=== PATIENT | female | born 1985 | race Two or more races ===

== ENCOUNTER 2018-09-11 09:47 | Emergency (ER) | payer OTHER ==
[~2018-09-11] VITALS: Ht 162.6 cm; Wt 121.2 kg
[2018-09-11] MEDS ORDERED: HYDR25TAB PO (09:57)
[2018-09-11] MEDS ORDERED: METO200T28 PO (09:57)
[2018-09-11] MEDS ORDERED: METO100T5 PO (09:57)
[2018-09-11] MEDS ORDERED: MAGN400T2 PO (09:58)
[2018-09-11] MEDS ORDERED: VITA100T98 PO (09:58)
[2018-09-11 10:48] LABS: HEMATOCRIT 38.3 % (36.0-47.0); HEMOGLOBIN 11.5 g/dl (12.0-15.5); MEAN CORPUSCULAR HEMOGLOBIN 21.5 pg (27.0-33.0); MEAN CORPUSCULAR VOLUME 71.5 fl (80.0-96.0); PLATELET COUNT, AUTOMATED 317 10^3/uL (150-450); RED BLOOD COUNT 5.36 10^6/uL (4.00-5.40); WHITE BLOOD COUNT 9.6 10^3/uL (4.0-10.0)
--- NOTE | 2018-09-11 11:55 | REP ---
Emergency first trimester obstetric sonography: History: Vaginal bleeding. Findings: Transabdominal and transvaginal scanning are performed. There is a gestational sac in the uterine endometrium. Mean sac size diameter is 9.7 mm. This corresponds with a gestational age estimate of 5 weeks 5 days. Questionable yolk sac is seen but no embryonic pole is visible. Limited visualization of the ovaries show no abnormality. There is no free fluid. Right ovary measures 2.2 x 1.9 x 1.9 cm. Left ovarian dimensions are 2.3 x 2.2 x 2.1 cm. Doppler flow is normal in both ovaries. Resistive indices are 0.30 on the right and 0.39 on the left. Uterine dimensions are 11.7 x 6.1 x 7.4 cm. Impression: Intrauterine gestational sac with a questionable yolk sac but no embryonic pole. Nonspecific findings. Consider followup. 5 week 5 day size by mean sac size diameter. Electronically Signed by Jerome Longoria MD 09/11/2018 02:48 P
[2018-09-11] MEDS ORDERED: MACR100C43 PO (12:06)
[2018-09-11 12:13] VITALS: BP 121/71
== END 2018-09-11 12:14 | disposition home or self-care (01) ==
LOC: M ED 09:47
DX: O36.80X0 Pregnancy with inconclusive fetal viability, not applicable or unspecified (principal); O20.0 Threatened abortion; O23.11 Infections of bladder in pregnancy, first trimester; O26.851 Spotting complicating pregnancy, first trimester; O16.1 Unspecified maternal hypertension, first trimester; Z3A.01 Less than 8 weeks gestation of pregnancy; Z87.891 Personal history of nicotine dependence; Z79.899 Other long term (current) drug therapy

== ENCOUNTER → 2018-09-13 | Outpatient (CLI) | payer OTHER ==
[~2018-09-13] MED LIST: HYDR25TAB PO; MACR100C43 PO; MAGN400T2 PO; METO100T5 PO; METO200T28 PO; VITA100T98 PO
== END ==
LOC: M LAB 11:08
PROVIDERS: ATTEND Emergency Medicine
DX: Z32.00 Encounter for pregnancy test, result unknown (principal)

== ENCOUNTER → 2018-09-18 | Outpatient (CLI) | payer OTHER ==
--- NOTE | 2018-09-18 17:34 | REP ---
FIRST TRIMESTER OB ULTRASOUND: 09/18/2018. Comparison: 09/11/2018. Clinical history: First trimester OB ultrasound 09/18/2018. Findings: Transabdominal imaging technique was utilized. The gestational sac well visualized on this exam. By LMP she would be 8 weeks 4 days. Today's study shows the uterus with a gestational sac in the fundus. Uterus anteverted. Within the gestational sac is a pole with a crown-rump length of 1.2 cm which corresponds to 7 weeks 2 days or an EDC of 05/05/2019. heart activity noted at 150 bpm. No subchorionic bleed is seen. The left ovary 2.8 x 2.5 x 2.4 cm. The right ovary 2.7 x 2.2 centimeters in greatest diameter and normal in appearance. No pelvic free fluid. Impression: 1. Single intrauterine gestation at 7 weeks 2 days by crown-rump length giving EDC 05/05/2019. Heart rate 150 and regular with no subchorionic bleed, adnexal mass or pelvic free fluid. Electronically Signed by Arthur Hastings MD 09/19/2018 11:28 A
== END ==
LOC: M RAD 14:30
PROVIDERS: ATTEND Obstetrics & Gynecology
DX: Z36.89 Encounter for other specified antenatal screening (principal); Z3A.01 Less than 8 weeks gestation of pregnancy

== ENCOUNTER 2018-10-24 15:45 | Emergency (ER) | payer OTHER ==
[~2018-10-24] VITALS: Ht 162.6 cm; Wt 125.6 kg
[2018-10-24 15:46] VITALS: BP 111/69
[2018-10-24] MEDS ORDERED: LABE100T36 PO (15:55)
[2018-10-24] MEDS ORDERED: PREN200C PO (15:55)
[2018-10-24] MEDS ORDERED: AMOX500C PO (16:44)
[2018-10-24] MEDS ORDERED: AMOXICILLIN 500 MG CAP PO ONE (16:45)
== END 2018-10-24 17:02 | disposition home or self-care (01) ==
LOC: M ED 15:45
DX: O99.89 Other specified diseases and conditions complicating pregnancy, childbirth and the puerperium (principal); H66.92 Otitis media, unspecified, left ear; J02.9 Acute pharyngitis, unspecified; Z3A.12 12 weeks gestation of pregnancy; I10 Essential (primary) hypertension; Z79.899 Other long term (current) drug therapy

== ENCOUNTER → 2018-10-28 | Outpatient (CLI) | payer OTHER ==
[~2018-10-28] MED LIST changes: +AMOX500C PO; +AUGM875T28 PO; +LABE100T36 PO; +PREN200C PO
--- NOTE | 2018-10-28 12:41 | REP ---
FOCUSED RIGHT BREAST SONOGRAPHY: HISTORY: Lump at 7-o'clock position in the right breast. 33-year all patient 12 weeks gestation. The right breast lump present for 3 weeks. Tender to palpation, 2.3 cm in size. SONOGRAPHIC FINDINGS: Scanning at the level of palpable lump demonstrates a complex cystic area just beneath the dermis measuring 3.2 x 0.9 x 1.8 cm. The long axis is parallel to the skin. The dermis bulges somewhat in association with this subdermal lesion. There is some blood flow visible along the anterior edge as. Internal debris movement is noted. No acoustic shadowing is seen. There is enhanced through transmission. Lesion is felt to be cystic but does not meet criteria of a simple cyst. IMPRESSION: Complex cystic subdermal lesion in the right breast at 7-o'clock position 3.2 cm in greatest diameter. Abscess, sebaceous cyst or other complex cystic lesions are in the differential. BIRADS category is felt to be best assigned as category 3 probably benign lesion. Clinical follow-up is advised. Needle aspiration could be considered. If the lesion persists or progresses, repeat imaging could be performed. Electronically Signed by Jerome Longoria MD 10/28/2018 04:33 P
== END ==
LOC: M RAD 09:47
PROVIDERS: ATTEND Obstetrics & Gynecology
DX: N63.13 Unspecified lump in the right breast, lower outer quadrant (principal)

== ENCOUNTER 2018-11-01 13:49 | Emergency (ER) | payer OTHER ==
[~2018-11-01] VITALS: Ht 162.6 cm; Wt 125.5 kg
[~2018-11-01 13:49] MED LIST changes: -AUGM875T28 PO
[2018-11-01] MEDS ORDERED: NS 1,000 ML IV ONE ×2 (14:15)
[2018-11-01] MEDS ORDERED: METOCLOPRAMIDE INJ 10MG/2ML VIAL (J2765) IV ONE (14:15)
[2018-11-01 14:31] LABS: BASO % 0.2 % (0.0-1.0); EOS # 0.2 10^3/uL (0.0-0.50); EOS % 1.3 % (0.0-3.0); HEMOGLOBIN 11.8 g/dl (12.0-15.5); LYMPH # 1.9 10^3/uL (1.5-4.5); LYMPH % 16.8 % (24.0-44.0); MEAN CORPUSCULAR HEMOGLOBIN 22.4 pg (27.0-33.0); MEAN CORPUSCULAR HGB CONC 31.1 g/dl (32.0-36.5); MEAN CORPUSCULAR VOLUME 72.2 fl (80.0-96.0); MONO # 0.5 10^3/uL (0.0-0.8); MONO % 4.6 % (0.0-5.0); NEUTROPHILS # 8.6 10^3/uL (1.8-7.7); NEUTROPHILS % 76.7 % (36.0-66.0); PLATELET COUNT, AUTOMATED 353 10^3/uL (150-450); RED BLOOD COUNT 5.26 10^6/uL (4.00-5.40); WHITE BLOOD COUNT 11.2 10^3/uL (4.0-10.0)
[2018-11-01 14:57] LABS: ALBUMIN 2.8 GM/DL (3.2-5.2); ALT/SGPT 14 U/L (12-78); BILIRUBIN,DIRECT 0.1 MG/DL (0.0-0.2); BILIRUBIN,TOTAL 0.3 MG/DL (0.2-1.0); BLOOD UREA NITROGEN 6 MG/DL (7-18); CALCIUM LEVEL 8.8 MG/DL (8.5-10.1); CARBON DIOXIDE LEVEL 25 MEQ/L (21-32); CHLORIDE LEVEL 103 MEQ/L (98-107); GLOMERULAR FILTRATION RATE > 60.0 (>60); GLUCOSE, FASTING 90 MG/DL (70-100); LIPASE 69 U/L (73-393); POTASSIUM SERUM 4.1 MEQ/L (3.5-5.1); SODIUM LEVEL 135 MEQ/L (136-145); TOTAL PROTEIN 7.6 GM/DL (6.4-8.2)
[2018-11-01] MEDS ORDERED: ACETAMINOPHEN 325 MG TAB PO ONE (15:15)
[2018-11-01] MEDS ORDERED: DICYCLOMINE INJ 20MG/2ML (J0500) IM ONE (15:30)
[2018-11-01 18:26] VITALS: BP 122/59
--- NOTE | 2018-11-01 19:42 | REPVR ---
EXAM: US First Trimester, Transabdominal EXAM DATE/TIME: 11/01/2018 5:33 PM CLINICAL HISTORY: 33 years old, female; complicated by abdominal or pelvic pain; Lower; First trimester; Gestational age or lmp: 13w4d; ; Additional info: 13 wk cramping TECHNIQUE: Imaging protocol: Real-time transabdominal obstetrical ultrasound of the maternal pelvis and a first trimester , less than 14 weeks 0 days, with image documentation. COMPARISON: No relevant prior studies available. FINDINGS: Other findings: Single position. GESTATION: Gestation: [place] rump length measures 7.6 cm. Heart rate: heart rate 178 beats per minute. Presentation: Variable position. Placenta: Posterior placenta. Amniotic fluid: Amniotic and chorionic fluid are normal for gestational age. BIOMETRY: Estimated gestational age: Gestational age based on averaged ultrasound measurements is 13 weeks 3 days which corresponds to LMP. RUSTAM 05/05/2019. Biparietal diameter: BPD 2.3 cm. Head circumference: Head circumference 8.4 cm. Abdominal circumference: Abdominal circumference 7 cm. Femur length: Femur length 1.1 cm. MATERNAL: Uterus: Unremarkable. Cervix: Unremarkable. Right adnexa: Unremarkable. Left adnexa: Unremarkable. Intraperitoneal: No intraperitoneal free fluid. IMPRESSION: Unremarkable examination at 13 weeks 3 days. Follow anatomic survey can be performed at 19-20 weeks if clinically desired. Electronically signed by: Olman Tenorio On 11/01/2018 19:41:51 PM
== END 2018-11-01 18:27 | disposition home or self-care (01) ==
LOC: M ED 13:49
DX: R19.7 Diarrhea, unspecified (principal); Z3A.13 13 weeks gestation of pregnancy
CPT/HCPCS: 76801; 80048; 80076; 83690; 85025; 96361; 96372; 96374; 99284; J0500; J2765

== ENCOUNTER → 2018-11-02 | Outpatient (REF) | payer OTHER ==
[~2018-11-02] MED LIST changes: +AUGM875T28 PO
== END ==
LOC: M LAB REF 13:11
PROVIDERS: ATTEND Emergency Medicine
DX: R19.7 Diarrhea, unspecified (principal)

== ENCOUNTER 2018-11-05 10:15 | Emergency (ER) | payer OTHER ==
[~2018-11-05] VITALS: Ht 162.6 cm; Wt 127.1 kg
[~2018-11-05 10:15] MED LIST changes: -AUGM875T28 PO
[2018-11-05] MEDS ORDERED: AUGM875T28 PO (10:41)
[2018-11-05] MEDS ORDERED: ACETAMINOPHEN TAB 650MG DOSE (2X325MG) PO ONE (11:15)
--- NOTE | 2018-11-05 12:40 | REP ---
Clinical: Neck swelling. Technique: Real time apple scale and color evaluation using linear and curved array transducers. Findings: Thyroid gland is diffusely heterogeneous and nodular. Isthmus measures 5 mm in width. Right lobe measures 5.4 x 2.9 x 3.3 cm and includes multiple small scattered hypoechoic nonspecific nodules measuring up to 10 mm as well as a complex cystic lesion with mural soft tissue, septations, and small calcifications in the upper pole measuring 2.9 x 1.9 x 2.3 cm. Partially calcified nodule in the mid lobe region measures 10 x 6 x 7 mm. Left lobe measures 5.1 x 2.0 x 2.0 cm and includes 1.4 x 1.0 x 1.2 cm nonspecific isoechoic lower pole nodule and 4 x 3 x 5 mm mid pole relatively simple cyst. Impression: Enlarged heterogeneous thyroid gland with scattered nodules including complex cystic lesion in the upper pole with mural soft tissue and scattered calcifications. Non emerging consultation may be warranted. Electronically Signed by Santiago Dyer MD 11/05/2018 12:32 P
[2018-11-05 13:26] VITALS: BP 145/82
--- NOTE | 2018-11-09 11:19 | ED PDOC ---
Post-Departure Follow-Up thyroid us faxed to [facility] for fp Arian Woo MD Nov 09, 2018 11:19
== END 2018-11-05 13:28 | disposition home or self-care (01) ==
LOC: M ED 10:15
DX: O99.282 Endocrine, nutritional and metabolic diseases complicating pregnancy, second trimester (principal); O13.2 Gestational [pregnancy-induced] hypertension without significant proteinuria, second trimester; Z3A.14 14 weeks gestation of pregnancy; Z79.899 Other long term (current) drug therapy

== ENCOUNTER → 2018-11-25 | Outpatient (CLI) | payer OTHER ==
[~2018-11-25] MED LIST changes: +AUGM875T28 PO
--- NOTE | 2018-11-25 17:08 | ECGEPIP ---
[facility] Test Date: 2018-11-25 Pat Name: SABRINA BLANTON Department: Room: - Gender: Female Field Nurse: ROSA MARIA : 1985 Requested By: Paula Walker Order Number: [id number] Reading MD: Orion Whitmore Measurements Intervals [place] Rate: 95 P: 57 NH: 133 QRS: 21 QRSD: 97 T: 38 QT: 337 QTc: 425 Interpretive Statements SINUS RHYTHM NONSPECIFIC T-WAVE ABNORMALITY Poor R-wave progression No prior ECG available for comparison. Electronically Signed on 11-25-2018 17:08:17 EDT by Orion Whitmore
== END ==
LOC: M EKG 14:57
PROVIDERS: ATTEND Obstetrics & Gynecology
DX: O24.112 Pre-existing type 2 diabetes mellitus, in pregnancy, second trimester (principal); O99.212 Obesity complicating pregnancy, second trimester; E66.9 Obesity, unspecified; O10.012 Pre-existing essential hypertension complicating pregnancy, second trimester; Z3A.16 16 weeks gestation of pregnancy

== ENCOUNTER → 2019-02-22 | Outpatient (CLI) | payer OTHER ==
--- NOTE | 2019-02-22 18:01 | REP ---
Clinical: well-being/growth Comparison: None . Findings: Examination demonstrates a single live intrauterine in cephalic presentation. motion is identified by technologist. Placenta is noted fundal and grade I without evidence for placenta previa or abruption. Amniotic fluid volume is normal. Cervix measures 3.8 cm in length and appears closed. No evidence for nuchal cord. Gestational age by LMP 29 weeks 5 days with RUSTAM 05/05/2019 . Gestational age by current measurements 28 weeks 3 day with RUSTAM 05/14/2019 . FHR equals 153 beats per minute. BPD 7.1 cm 28 weeks 2 days HC 26.5 cm 28 weeks 2 days AC 25.1 cm 29 weeks 2-day FL 5.4 cm 28 weeks 4-day HL 4.7 cm 28 weeks 0 days HC/AC ratio 1.04 Estimated weight 1299 grams ( 24th percentile). Amniotic fluid index: 17.4 cm Umbilical cord SD ratio: 2.77 Impression: single live intrauterine in cephalic presentation demonstrating appropriate interval growth. No gross abnormalities are identified. Electronically Signed by Santiago Dyer MD 02/22/2019 05:52 P
== END ==
LOC: M RAD 11:23
PROVIDERS: ATTEND Obstetrics & Gynecology
DX: O24.113 Pre-existing type 2 diabetes mellitus, in pregnancy, third trimester (principal); O99.213 Obesity complicating pregnancy, third trimester; Z3A.28 28 weeks gestation of pregnancy

== ENCOUNTER → 2019-03-10 | Outpatient (CLI) | payer OTHER ==
--- NOTE | 2019-03-11 14:07 | REP ---
Obstetric sonography: Repeat dictation. History: Supervision of . growth study. Findings: Scanning through the gravid uterus demonstrates a viable cephalic intrauterine fetus. motion is observed and heart rate is recorded at 153 beats per minute. A right lateral and fundal placenta is seen grade 1 to 2 without evidence of previa or abruption. Amniotic fluid is subjectively normal. Closed cervical length is 5.4 cm, measured transabdominally. No extrauterine abnormalities observed. There has been somewhat less than expected interval growth. Exam quality is inhibited by maternal body habitus and position. Estimated weight is in 3rd percentile with head measurements larger than the others proportionately. The following anatomic structures are again identified and felt to be unremarkable: cranium, cavum, cerebellum and posterior fossa, diaphragm, left-sided stomach, kidneys and bladder, spine. Biometry chart: BPD 7.7 cm = 31 weeks 0 days Head circumference 28.7 cm = 31 weeks 4 days Abdominal circumference 25.4 cm = 29 weeks 4 days Humeral length 5.2 cm = 27 weeks 5 days Humeral length 4.6 cm = 27 weeks 2 days HC/AC ratio normal 1.13. Cephalic index normal 0.74. Estimated weight 1361 grams, 3 pounds 0 ounces, less than 3rd percentile for 32 weeks 0 days. S/D ratio in the umbilical cord artery by Doppler slightly elevated 4.86 (2.50-3.50). Middle cerebral artery S/D ratio normal 2.74. Impression: Viable single intrauterine gestation at 29 weeks 3 days by today's composite criteria. Expected gestational age estimate based on prior sonography is 32 weeks 0 days. RUSTAM by prior sonography May 05, 2019. There has been somewhat less than expected interval growth, estimated weight less than 3rd percentile. Question asymmetric IUGR. Electronically Signed by Jerome Longoria MD 03/11/2019 03:48 P
== END ==
LOC: M RAD 10:27
PROVIDERS: ATTEND Obstetrics & Gynecology
DX: Z34.82 Encounter for supervision of other normal pregnancy, second trimester (principal); Z3A.27 27 weeks gestation of pregnancy

== ENCOUNTER 2019-03-16 16:57 | Inpatient (IN) | payer OTHER ==
[2019-03-16] VITALS (23 sets, daily range): BP systolic 143–224; BP diastolic 72–127
[~2019-03-16] VITALS: Ht 162.6 cm; Wt 136.9 kg
[2019-03-16] MEDS ORDERED: METF500T13 PO (17:39)
[2019-03-16] MEDS ORDERED: ASPI81TA85 PO (17:39)
[2019-03-16] MEDS ORDERED: HUMA100I5 SC ×2 (17:44)
[2019-03-16] MEDS ORDERED: APAP325T4 PO (17:47)
[2019-03-16] MEDS ORDERED: LABETALOL HCL 100 MG/20 ML VIAL IV ONE (19:00)
[2019-03-16] MEDS ORDERED: LABETALOL HCL 100 MG/20 ML VIAL IV SCH (19:15)
[2019-03-16] MEDS ORDERED: hydrALAZINE INJ 20 MG/ML VIAL As Ordered ONE (19:43)
[2019-03-16 19:48] LABS: AMORPHOUS SEDIMENT SMALL (NEGATIVE); APPEARANCE, URINE CLOUDY (CLEAR); BACTERIA, URINE AUTO 1+ (NEGATIVE); BILIRUBIN, URINE AUTO NEGATIVE (NEGATIVE); BLOOD, URINE BLOOD 1+ (NEGATIVE); COLOR, URINE YELLOW (YELLOW); GLUCOSE, URINE (UA) AUTO NEGATIVE (NEGATIVE); KETONE, URINE AUTO NEGATIVE (NEGATIVE); LEUKOCYTE ESTERASE, URINE AUTO NEGATIVE (NEGATIVE); MUCUS, URINE SMALL (NEGATIVE); NITRITE, URINE AUTO NEGATIVE (NEGATIVE); PROTEIN, URINE AUTO 3+ mg/dL (NEGATIVE); RBC, URINE AUTO 3 /HPF (0-3); SPECIFIC GRAVITY URINE AUTO 1.012 (1.002-1.035); SQUAMOUS EPITHELIAL CELL UR AU 0 /HPF (0-6); UROBILINOGEN, URINE AUTO 0.2 mg/dL (0.0-2.0); WBC, URINE AUTO 14 /HPF (0-3)
--- NOTE | 2019-03-16 20:13 | REPVR ---
PROCEDURE INFORMATION: Exam: US Biophysical Profile Without Non-Stress Test Exam date and time: 03/16/2019 7:38 PM Clinical history: 34 years old, female; Other: HTN; ; Additional info: Iup, 32.6 weeks, HTN TECHNIQUE: Imaging protocol: US biophysical profile without non-stress testing. COMPARISON: US OBS FOLL UP OR REPEAT EACH GES 03/10/2019 10:44 AM FINDINGS: Other findings: Cephalic presentation. Breathin/2 Gross body movements: 2/2 tone: 2/2 Qualitative amniotic fluid: 2/2 Biophysical Profile Score: 8/8 Heart rate: heart rate 142 beats per minute. Placenta: Placenta located in the right side of the fundus. Cervix: Cervix measures 4 cm. Umbilical artery Doppler: Umbilical cord peak systolic velocity 31.6 cm/s, S/D 0.2, resistive index 0.76. IMPRESSION: Biophysical profile score is 8 out of 8. Electronically signed by: Olman Tenorio On 03/16/2019 20:13:46 PM
[2019-03-16 20:14] LABS: ALT/SGPT 17 U/L (12-78); BILIRUBIN,TOTAL 0.1 MG/DL (0.2-1.0); CREATININE FOR GFR 0.49 MG/DL (0.55-1.30); GLOMERULAR FILTRATION RATE > 60.0 (>60); GLUCOSE,RANDOM 103 MG/DL (LESS THAN 200); LDH LACTATE DEHYDROGENASE 214 U/L (84-246); URIC ACID 6.8 MG/DL (2.6-6.0)
[2019-03-16 20:19] LABS: CREATININE,RANDOM URINE 69.8 MG/DL; TOTAL PROTEIN,RANDOM URINE 301.7 MG/DL (0.0-12.0)
[2019-03-16] MEDS ORDERED: BETAMETHASONE SOLUSPAN 6MG/ML INJ 5ML (J0702) As Ordered ONE (20:39)
[2019-03-16] MEDS ORDERED: MAGNESIUM SULFATE 4% INJ 20GM/500ML (40MG/ML) (J3475) As Ordered ONE (20:39)
[2019-03-16] MEDS ORDERED: MAGNESIUM *L&D* 4 GM/100 ML BAG (40MG/ML) (J3475) As Ordered ONE (20:39)
[2019-03-16] MEDS: NS 1,000 ML IV SCH (20:55)
[2019-03-16] MEDS: MAG Sulf (OBGYN) 20GM/500ML 20,000 MG in IV 1 EA IV SCH (21:29)
[2019-03-16] MEDS ORDERED: MAG Sulf (L&D) 4 GM/100 ML 4 GM in IV 1 EA IV ONE (21:45)
[2019-03-16] MEDS ORDERED: hydrALAZINE INJ 20 MG/ML VIAL IV ONE (21:45)
[2019-03-16] MEDS ORDERED: CALCIUM GLUCONATE 1,000 MG in D5W MINI-BAG PLUS 100 ML IV PRN (21:45)
[2019-03-16] MEDS ORDERED: LABETALOL HCL 100 MG/20 ML VIAL IV STA ×2 (21:47)
[2019-03-16] MEDS ORDERED: metFORMIN (GLUCOPHAGE) 1000 MG TABLET PO ONE (22:00)
[2019-03-16] MEDS: LABETALOL 200 MG TAB PO SCH (23:05)
[2019-03-16] MEDS: BETAMETHASONE SOLUSPAN 6MG/ML INJ 5ML (J0702) IM SCH (23:17)
[2019-03-16] MEDS: hydrALAZINE INJ 20 MG/ML VIAL IV SCH (23:19)
[2019-03-17] VITALS (61 sets, daily range): BP systolic 115–178; BP diastolic 62–104
[2019-03-17] MEDS: hydrALAZINE INJ 20 MG/ML VIAL IV SCH (01:01)
[2019-03-17 01:45] LABS: HEMATOCRIT 42.2 % (36.0-47.0); HEMOGLOBIN 13.4 g/dl (12.0-15.5); MEAN CORPUSCULAR HGB CONC 31.8 g/dl (32.0-36.5); MEAN CORPUSCULAR VOLUME 81.8 fl (80.0-96.0); PLATELET COUNT, AUTOMATED 306 10^3/uL (150-450); RED BLOOD COUNT 5.16 10^6/uL (4.00-5.40); WHITE BLOOD COUNT 10.6 10^3/uL (4.0-10.0)
[2019-03-17 02:07] LABS: MAGNESIUM LEVEL 3.5 MG/DL (1.8-2.4)
[2019-03-17] MEDS ORDERED: NIFEdipine 10 MG CAP PO SCH (02:30)
[2019-03-17] MEDS ORDERED: NIFEdipine 10 MG CAP As Ordered ONE (02:31)
[2019-03-17] MEDS: MAG Sulf (OBGYN) 20GM/500ML 20,000 MG in IV 1 EA IV SCH ×2 (06:45→15:38)
[2019-03-17] MEDS: LABETALOL 200 MG TAB PO SCH ×3 (06:47→20:57)
--- NOTE | 2019-03-17 07:09 | HPE ---
DATE OF ADMISSION: 03/16/2019 33-year-old 3, para 2, LMP 12/20/2018 EDC all 05/05/2019 at 32 and 5 weeks gestation with a history of monitoring in the clinic. Today her blood pressure is 170/100. They were unable to do a monitoring strip because of her severe morbid obesity and she was told to come to labor and delivery for extensive monitoring and biophysical profile. The patient did not go to labor and delivery for monitoring and profiling and said she went home and she came back 4 hours later to labor and delivery. Her risk factors is she is an AGDM2, noncompliant did not take her insulin, chronic hypertension does not take her antihypertensives, morbidly obese with a BMI of 46.45 and two previous sections. PAST HISTORY: In 2006 had a section at 39 weeks for arrest of dilatation male infant 6 pounds 2 ounces. In 2013 had a section for twins at 38 weeks male female 5 pounds 6 ounces 5 pounds 8 ounces having had chronic hypertension in AGDM1, not controlled. She is not taking her insulin. She has not taken it for 4 days. She is not taking her labetalol either. All she is taking is her Metformin. She was supposed to take Humulin N 40 units at breakfast and Humulin N 20 units at dinner. NPH is 60 units at breakfast and NPH at bedtime of 22 units, none of which she is taking. On admission to labor and delivery, she had a pre-eclamptic severe range blood pressure is 186/83, 178/96, 194/105, 179/108. She had no visual disturbances. No right upper quadrant pain. No light sensitivity. No decreased urinary output. LABS: A+, HIV negative, hep negative, RPR negative, rubella immune. Varicella immune. Pap was normal. Urine was negative. Gonorrhea and chlamydia negative. 1-hour glucose initially was 170. Her 3-hour GTT or fasting was 117. One hour was 252, 2 hours 237 and 3 hours 148. GBS status is unknown. Her labs presently her protein creatinine ratio was 4.32, uric acid is 6.8, glucose was 103 and she has 3+ protein in the urine. A biophysical profile was performed because it is impossible to get an NST. The SEAN of 6.3 with the largest pocket is 2.5. Cervix is 4 cm, vertex presenting. The ST ratio was elevated at 4.2. She has a grade 2 placenta was noted and no evidence of distress however fetus at 3 rd percentile small for gestational age. Our plan of management was to do IV labetalol per protocol 20 mg, 40 mg, 80 mg failing to decrease the blood pressures use hydralazine 10 mg 10 mg 10 mg followed by nifedipine by mouth 10 mg. Steroids for lung maturity 12.5 mg x2 doses. Administer her metformin as steroids will enhance her lung for her sugars Fisher catheter in and out. When stabilized labetalol 200 mg three times a day plus or minus use of by mouth nifedipine we discussed the risks and benefits of the present situation the fact that she is noncompliant and has severe range blood pressures and may have may have to be due to delivered early with baby spending time in the NICU. The patient accepts the end of the explanation and will remain here for stabilization and ongoing care. Neonatology will be informed the rest examination is unremarkable. She is normocephalic, atraumatic. Neck: Full range of motions. Pupils equal and reactive to light. Distal pulses are symmetric. No evidence of DVT, PE or superficial phlebitis, sequentials were placed and SYLVIA stockings. No rashes, lesions or pruritus. No arthralgia, myalgia. No complaint joint pain. No complaint cough, wheezes, shortness of breath or dyspnea on exertion. No nausea, vomiting, diarrhea or constipation. In summary we have a noncompliant 33-year-old 3, para 2 with severe range blood pressures pre pending and requiring aggressive antihypertensive management. MTDD
[2019-03-17] MEDS ORDERED: SLF 3 ML SYR IV PRN (08:00)
[2019-03-17 08:19] LABS: HEMATOCRIT 41.6 % (36.0-47.0); HEMOGLOBIN 13.2 g/dl (12.0-15.5); MEAN CORPUSCULAR HEMOGLOBIN 26.2 pg (27.0-33.0); MEAN CORPUSCULAR HGB CONC 31.7 g/dl (32.0-36.5); MEAN CORPUSCULAR VOLUME 82.5 fl (80.0-96.0); PLATELET COUNT, AUTOMATED 321 10^3/uL (150-450); RED BLOOD COUNT 5.04 10^6/uL (4.00-5.40)
--- NOTE | 2019-03-17 08:19 | IPN ---
DATE: 03/17/2019 This lady was admitted. She is a 33-year-old, 3, para 2. Her risk factors is she is an AGDM2 on insulin but not taking her insulin for the last 4 days. She has chronic hypertension not taking her medications for the last 4 days, morbidly obese and noncompliant. Her body mass index (BMI) is 46.45. On her the initial evaluation in the clinic, she had blood pressures of 170/100. She was told to come to labor and delivery for ongoing monitoring. She declined. She went home. She returned 4-1/2 half hours later. When she came in her blood pressures are 186/105, 182/86, 17/92. She had severe range blood pressures. She had no evidence of symptoms. She had no right upper quadrant pain. No visual disturbances. No light sensitivity. Also, she had not been taking her insulin because her was not home to give it to her and she refused to teach herself in order to give it to herself. She was initiated on the hypertensive protocol. She was started off with labetalol and we maxed out to labetalol and then, subsequently went to hydralazine. After hydralazine, we added nifedipine. She eventually stabilized out with her blood pressure having some random severe range blood pressures but overall her blood pressures have remained stable overnight. Presently, her blood pressure is 144/89, 147/83, 143/81. She had a random blood pressure of 168/77. She did have a fingerstick, which showed her sugar was 105 on admission, however with the enhancement of steroids to have her be steroid complete her blood sugar at 0200 hours on 03/17/2019 was 153. She did receive her metformin 1000 mg at bedtime but no active insulin. Her magnesium levels were 3.5 not yet in therapeutic range. Her uric acid was 6.8. Her protein creatinine ratio was 4.32. Presently this morning at 0800 hours, she has a complete blood count (CBC) ordered, a magnesium level and a glucose level. She is presently on labetalol 200 three times a day, nifedipine 10 mg on a as needed basis to supplement the labetalol. She is nothing by mouth at the present time. She will be steroid complete at 0900 hours. We have also initiated fingersticks before meals and at bedtime. The nonstress is not helpful in that it is flat always. She is morbidly obese with a 46.46 BMI and we have been monitoring her with a biophysical profile. Her last biophysical profile was 12/10 and this is our mechanism to evaluate ongoing of health. Our plan is to make her steroid complete and after that evaluate whether not she needs to be immediately delivered. She has had two previous sections and/or continue monitoring on a daily basis with a biophysical profile monitoring her sugars, adding her insulin back in and maintaining her blood pressure at a below critical levels. The patient understands the plan of care. We spent 40 minutes answering all questions.
[2019-03-17] MEDS ORDERED: NS 1,000 ML IV SCH (08:36)
[2019-03-17 08:45] LABS: MAGNESIUM LEVEL 4.4 MG/DL (1.8-2.4)
[2019-03-17] MEDS: PRENATAL VITAMINS CHEWABLE TABLET PO SCH (09:00)
[2019-03-17] MEDS: BETAMETHASONE SOLUSPAN 6MG/ML INJ 5ML (J0702) IM SCH (09:25)
[2019-03-17] MEDS: NS 1,000 ML IV SCH (10:16)
--- NOTE | 2019-03-17 10:33 | REP ---
OBSTETRIC SONOGRAPHY: HISTORY: Preeclampsia. Supervision of . growth study with biophysical profile. FINDINGS: Transabdominal scanning demonstrates a viable single intrauterine gestation in a cephalic lie. motion is observed, and heart rate is recorded at 143 beats per minute. A fundal right lateral placenta is seen grade 1 to 2 without evidence of previa or abruption. Amniotic fluid is subjectively low normal. Closed cervical length measured transabdominally is 3.1 cm. No extrauterine abnormalities observed. There has been less than expected interval growth. Exam quality was inhibited by advanced gestational age, maternal body habitus, and crowding. The following anatomic structures are identified and felt to be unremarkable today: cranium, choroid plexus, cavum, cerebellum and posterior fossa, diaphragm, left-sided stomach, kidneys, and bladder. BIOMETRY CHART: BPD 7.8 cm = 31 weeks 2 days Head circumference 29.0 cm = 31 weeks 6 days Abdominal circumference 26.5 cm = 30 weeks 4 days Femur length 5.3 cm = 28 weeks 1 day Humeral length 4.7 cm = 27 weeks 5 days HC/AC ratio normal 1.09 Cephalic index normal 0.75 Estimated weight 1491 grams, 3 pounds 4 ounces, less than 3rd percentile for 33 weeks 0 days. SEAN 7.0 cm (8.3-24.5 cm. Biophysical profile score 8 out of a possible 8. S/D ratio in the umbilical artery could not be measured due to a small amount of flow reversal in diastole seen on the Doppler tracing. IMPRESSION: Viable single intrauterine gestation at 30 weeks 0 days by today's composite sonographic criteria. Expected gestational age estimate is 33 weeks 0 days. There is less than expected interval growth. Estimated weight less than 3rd percentile for 33 weeks 0 days. RUSTAM by today's sonography, May 05, 2019. Low normal amniotic fluid. SEAN 7.0. Small amount of flow reversal in the umbilical artery Doppler tracing. Electronically Signed by Jerome Longoria MD 03/17/2019 12:54 P
[2019-03-17] MEDS ORDERED: AZITHROMYCIN INJ 500 MG, VIAL MATE ADAPTER 1 EACH in D5W 250 ML IV ONE (11:00)
--- NOTE | 2019-03-17 11:14 | IPNPDOC ---
Text Note Date of Service The patient was seen on 03/17/19. NOTE I accepted care of Ms. Randall this morning. She's a 34 yo (history of twins) at 33+0 weeks gestation today by 10+5 week US on 12Oct2018 who was admitted to L&D yesterday evening due to severely elevated blood pressures and a non reactive NST. She has a known history of chronic hypertension and Class B diabetes mellitus. She has been somewhat non compliant with her medication regimens and hasn't taken her labetalol, insulin, or metformin for several days. Her blood pressure was ultimately stabilized last night with IV hydralazine and IV labetalol. She was also started on her PO labetalol. Blood sugars have been 100s-150s and her insulin and metformin were not ordered. NST was non reactive, though she had an 8/8 formal BPP down in radiology yesterday evening. Blood work was obtained to assess for toxemia and her urine protein:creatinine was 4.32. Platelets were stable, creatinine was normal, and AST/ALT were normal as well. She was diagnosed with presumed chronic hypertension with superimposed pre eclampsia with severe features based on her severely elevated blood pressures and significant proteinuria on a spot check. She was started on IV magnesium for maternal seizure prophylaxis. She was given a dose of BTMZ. This morning her BPs were mostly 140s/90s, with sporadic 160s-170s systolic. She reports feeling well. She denies any headaches, RUQ pain, visual changes, or SOB. She only reports feeling tired. Repeat blood work this morning was stable. She received an additional dose of BTMZ this AM 12 hours after her first dose. NST continued to be non reactive with periods of minimal variability. With blood pressure being controlled, I recommended halting magnesium to assess how her blood pressure responded. In addition, I ordered another formal BPP and growth scan as well as umbilical artery dopplers once magnesium was out of her system. For comparison, she had a growth scan on 10Mar2019 that revealed growth <3rd percentile, which is obviously consistent with IUGR. Today, on US she again had an 8/8 BPP, though growth restriction was again demonstrated at <3rd percentile. However, in addition, there was noted REVERSED diastolic flow in the umbilical artery. I discussed the clinical situation and all these findings in detail with Ms. Randall. ACOG, and most professional organizations recommend immediate delivery in the growth restricted fetus with REVERSED diastolic flow in the umbilical artery if gestational age is >32 weeks. Because of this, I recommended delivery today. She has had two prior sections and has no desire for TOLAC today. In addition, I do not believe her fetus would tolerate labor anyway. Will plan for repeat section. I discussed all risks of surgery to include, but not limited to, bleeding requiring blood transfusion, risk of infection, risk of injury to bowel, bladder, or other structures which could require additional surgery, risk of injury to baby, and even risk of and/or maternal . She verbalized understanding of these risks and elected to proceed. I also discussed with her the risks to her baby even after bart schultz, however the benefit of keeping her in this situation is almost certainly outweighed by its risks. She understands that her baby will spend time in the NICU and that time may be considerable. She understands her baby may require intubation and other invasive procedures. All patient questions answered. Mariajose Luz DO VS,Yuan, I+O VS, Yuan, I+O Laboratory Tests 03/16/19 19:22 03/17/19 01:37 03/17/19 08:03 Vital Signs Date Time Temp Pulse Resp B/P (MAP) Pulse Ox O2 Delivery O2 Flow Rate FiO2 03/17/19 10:40 100 18 174/83 (113) 03/17/19 10:10 97.7 03/16/19 17:20 99 Room Air I&O- Last 24 Hours up to 6 AM 03/17/19 06:00 Intake Total 1240 ml Output Total 700 ml Balance 540 ml MARIAJOSE LUZ DO Mar 17, 2019 11:14
[2019-03-17] MEDS ORDERED: KETOROLAC 60 MG/2 ML VIAL (J1885) As Ordered ONE (11:15)
[2019-03-17] MEDS ORDERED: ceFAZolin SOD 1 GM in D5W MINI-BAG PLUS 50 ML IV ONE (11:15)
[2019-03-17] MEDS ORDERED: OXYTOCIN INJ 10 UNITS/ML VIAL (J2590) As Ordered ONE (11:15)
[2019-03-17] MEDS ORDERED: BICITRA 30ML SOLN UDC PO ONE (11:15)
[2019-03-17] MEDS ORDERED: ceFAZolin SOD 2 GM in IV 1 EA IV ONE (11:15)
[2019-03-17] MEDS ORDERED: MORPHINE PRES-FREE INJ 10 MG/10 ML VIAL (J2274) As Ordered ONE (11:15)
[2019-03-17] MEDS ORDERED: METOCLOPRAMIDE INJ 10MG/2ML VIAL (J2765) As Ordered ONE (11:15)
[2019-03-17] MEDS ORDERED: ONDANSETRON 4MG/2ML VIAL (J2405) As Ordered ONE (11:15)
[2019-03-17] MEDS ORDERED: NALOXONE INJ 0.4 MG/1 ML VIAL (J2310) IV PRN ×2 (11:45)
[2019-03-17] MEDS ORDERED: METOCLOPRAMIDE INJ 10MG/2ML VIAL (J2765) IV PRN ×2 (11:45→13:30)
[2019-03-17] MEDS ORDERED: NALBUPHINE HCL 10 MG/ML AMP (J2300) IV PRN (11:45)
[2019-03-17] MEDS ORDERED: ONDANSETRON 4MG/2ML VIAL (J2405) IV PRN ×2 (11:45→13:30)
[2019-03-17] MEDS ORDERED: diphenhydrAMINE INJ 50MG/ML VIAL (J1200) IV PRN (11:45)
[2019-03-17 12:38] LABS: CORD GAS ABE V -8.9; CORD GAS O2 SAT V 16.5 %; CORD GAS PCO2 V 86.2 mmHg; CORD GAS PH V 7.045 UNITS; CORD GAS PO2 V 13.8 mmHg; CORD GAS SBC V 15.8 MEQ/L; CORD GAS TCO2 V 25.7 MEQ/L
[2019-03-17 12:40] LABS: CORD GAS ABE A -11.3; CORD GAS HCO3 A 18.1 MEQ/L; CORD GAS O2 SAT A 87.5 %; CORD GAS PCO2 A 56.1 mmHg; CORD GAS PH A 7.127 UNITS; CORD GAS PO2 A 50.3 mmHg; CORD GAS SBC A 15.4 MEQ/L; CORD GAS TCO2 A 19.8 MEQ/L
[2019-03-17] MEDS ORDERED: PROMETHAZINE 25 MG TAB PO PRN (13:15)
[2019-03-17] MEDS ORDERED: RHOGAM 300 MCG (1500 IU) INJ (J2790) IM SCH (13:15)
[2019-03-17] MEDS ORDERED: LR 1,000 ML IV SCH (13:30)
[2019-03-17] MEDS ORDERED: PERCOCET 5MG/325MG TAB PO PRN ×2 (13:30)
[2019-03-17] MEDS ORDERED: KETOROLAC 30 MG/ML VIAL (J1885) IV PRN (13:30)
[2019-03-17] MEDS ORDERED: fentaNYL 100 MCG/2 ML INJECTION (J3010) IV PRN (13:30)
[2019-03-17] MEDS ORDERED: MEPERIDINE INJ 25 MG/ML VIAL (J2175) IV PRN (13:30)
[2019-03-17] MEDS ORDERED: OXYTOCIN DRIP 30 UNITS in IV 1 EA IV SCH (14:00)
[2019-03-17] MEDS ORDERED: SLF 3 ML SYR IV SCH (14:00)
[2019-03-17] MEDS ORDERED: MEASLES,MUMPS,RUBELLA VACCINE INJ (MMR-II) (90707) SC SCH (14:00)
[2019-03-17] MEDS: LR 1,000 ML IV SCH (14:46)
--- NOTE | 2019-03-17 15:39 | RO ---
DATE OF PROCEDURE: 03/17/2019 PREPROCEDURE DIAGNOSES: 1. Severe intrauterine growth restriction with reversed end diastolic flow on umbilical artery Doppler studies. 2. Chronic hypertension with superimposed preeclampsia with severe features. 3. Morbid obesity. 4. History of two prior sections. POSTPROCEDURE DIAGNOSES: 1. Severe intrauterine growth restriction with reversed end diastolic flow on umbilical artery Doppler studies. 2. Chronic hypertension with superimposed preeclampsia with severe features. 3. Morbid obesity. 4. History of two prior sections. PROCEDURE: Repeat low transverse section. SURGEON: Dr. Luz DRAFTER GEOPHYSICAL: Dr. Mathew ANESTHESIA: Spinal. FLUIDS: 300 mL LR. URINE OUTPUT: 100 mL. ESTIMATED BLOOD LOSS: 600 mL. ANTIBIOTICS: 3 grams Ancef and 500 mg of azithromycin. COMPLICATIONS: None. OPERATIVE FINDINGS: Fetus delivered in cephalic presentation. Meconium stained amniotic fluid noted upon entering into the uterus. Neither fallopian tubes nor ovaries were visualized bilaterally. Extensive preperitoneal and intrabdominal adhesive disease. INDICATION FOR PROCEDURE: The patient is a 34-year-old (G) 3, para (P) 2 0-0-3 presented at 33 and 0 weeks gestation with a nonreactive NST and severely elevated blood pressures. She has known chronic hypertension and poorly controlled class B diabetes mellitus. She was monitored and continued to have severely elevated blood pressures and blood work was consistent with severe preeclampsia. She had had a growth ultrasound which revealed fetus in the third percentile one week prior. A repeat ultrasound was obtained today which revealed again fetus less than the third percentile and then new onset reversed end diastolic flow on umbilical artery Doppler studies. She was counseled and consented with recommendation for delivery. DETAILED PROCEDURE DESCRIPTION: The risks, benefits, indications, and alternatives of the procedure were reviewed with the patient and informed consent was obtained. The patient was taken to the operating room where spinal anesthesia was obtained without difficulty. She was then prepped and draped in the usual sterile fashion in the dorsal spine position with a leftward tilt. The patient's pannus was taped up with tape. Again she was prepped and draped in the usual sterile fashion. A surgical time-out was then performed and the patient's identity and planned procedure were verified with the operative team. A Pfannenstiel skin incision was then made with the scalpel and carried through the underlying layer of fascia using Bovie electrocautery. There was extensive adhesive disease down to the fascia and all the way to the peritoneum. The fascia was incised in the midline and the incision was extended laterally with Oneill scissors. The superior aspect of the fascia incision was then grasped with John clamps, elevated and the underlying rectus muscles were dissected off with Oneill scissors and bluntly. Attention was then turned to the inferior aspect of this incision which in a similar fashion was grasped, tented up with John clamps, and the rectus muscles were dissected off with Oneill scissors. The rectus muscles were then at the midline. The peritoneum was identified and entered digitally. The peritoneal incision was then extended horizontally and superiorly with good visualization of the bladder. A Mobius self containing rectractor was then inserted into the abdomen as a means to provide exposure. The lower uterine segment vesicouterine peritoneum was then identified and entered sharply with the scalpel. This incision was then extended laterally and the bladder flap was created digitally. Next, the lower uterine was incised in transverse fashion with the scalpel. The uterine incision was then extended manually. The amniotic fluid sac was artificially ruptured and it was productive of meconium stained amniotic fluid. The was found to be in cephalic presentation. The infant's head was delivered atraumatically through the hysterotomy without difficulty, followed by the remainder of the body. The 's nose and mouth were suctioned with a bulb syringe and the cord was doubly clamped and cut. The infant was then immediately handed off to the awaiting pediatricians. Cord gases were obtained. The placenta was then removed manually. The uterus could not be exteriorized. The uterus was then cleared of all clots and debris and the hysterotomy was closed in situ. The uterine incision was then repaired with 0 Monocryl suture in a running locked fashion. A second layer of 0 Monocryl was then used to imbricate the hysterotomy in a vertical fashion. The posterior cul-de-sac was then irrigated. Inspection of the hysterotomy revealed hemostasis. The pericolic gutters then irrigated and cleared of all clots and debris. The uterus and the hysterotomy was again noted to be hemostatic. The Mobius self containing retractor was then removed from the abdomen. The peritoneum could not be closed secondary to body habitus and anatomy. The fascia was then re-approximated using 0 Vicryl suture in a running fashion. The subcutaneous fat was closed with 3-0 Vicryl suture in a running fashion. The skin was then closed with 4-0 Monocryl in a subcuticular fashion. The incision was then dressed with Steri-Strips and a pressure dressing was applied. At completion of the case a bimanual exam was performed which revealed good uterine tone and minimal vaginal bleeding. The patient tolerated the procedure well. Sponge, lap, and needle counts were correct times three. The patient was taken to the recovery room in stable condition. RENATA
[2019-03-17] MEDS: KETOROLAC 30 MG/ML VIAL (J1885) IV SCH (18:04)
[2019-03-17] MEDS ORDERED: NIFEdipine 30 MG XL TAB PO SCH (19:00)
[2019-03-17] MEDS: ENOXAPARIN 60 MG/0.6 ML SYR (J1650) SC SCH (19:30)
[2019-03-18] VITALS (29 sets, daily range): BP systolic 124–174; BP diastolic 59–91
[2019-03-18] MEDS: KETOROLAC 30 MG/ML VIAL (J1885) IV SCH ×2 (00:09→05:57)
[2019-03-18] MEDS: MAG Sulf (OBGYN) 20GM/500ML 20,000 MG in IV 1 EA IV SCH ×2 (00:45→11:11)
[2019-03-18] MEDS: LR 1,000 ML IV SCH (02:12)
--- NOTE | 2019-03-18 02:37 | DS.PDOC ---
Discharge Summary General Date of Admission Mar 16, 2019 at 20:40 Date of Discharge Mar 22, 2019 Discharge Summary HOSPITAL COURSE: Latrice is a 34 yo G3 now P4 who was admitted on 16Mar2019 for observation due to severely elevated blood pressures and a non reactive NST. She underwent an uncomplicated RLTCS on 17Mar2019 due to CHTN with superimposed pre eclampsia with severe features, and severe IUGR with reversed diastolic flow on umbilical artery doppler studies. Her blood pressures stabilized after delivery ultimately on three different antihypertensives medications. She received IV magnesium. Her course was otherwise unremarkable after controlling her blood pressure. She met all appropriate discharge criteria on her day of discharge. She was ambulating without pr oblems, had minimal lochia, had minimal pain, was tolerating PO, and was voiding spontaneously, and was passing gas. DISCHARGE MEDICATIONS: Please see below. ALLERGIES: Please see below. PHYSICAL EXAMINATION ON DISCHARGE: VITAL SIGNS: Please see below. GENERAL: AAOX3, sitting up in bed, NAD ABDOMINAL EXAMINATION: Soft, non distended. Fundus firm at U-2. No fundal tenderness. Incision clean/dry/inact. Steri strips in place. EXTREMITIES: 1+ edema PSYCHIATRIC EXAMINATION: Affect appropriate LABORATORY DATA: Please see below. ACTIVITY: Pelvic rest for 6 weeks DIET: Regular DISCHARGE PLAN: Discharge home or to boarder DISPOSITION: Discharge home on 22Mar2019. DISCHARGE INSTRUCTIONS: 1. Pelvic rest for 6 weeks. 2. No lifting greater than 10 pounds 3. Take your medication 4. Blood pressure check in the [facility] office on Friday, 24Mar2019 ITEMS TO FOLLOWUP ON ON OUTPATIENT: 1. Incision check in 2 weeks 2. appointment in 6 weeks 3. blood pressure check 2 days from discharge from hospital (24Mar2019 in the [facility].) DISCHARGE CONDITION: Stable. TIME SPENT ON DISCHARGE: Greater than 20 minutes. Mariajose Luz, Vital Signs/I&Os Vital Signs Date Time Temp Pulse Resp B/P (MAP) Pulse Ox O2 Delivery O2 Flow Rate FiO2 03/18/19 01:47 97.8 74 16 144/66 (92) 03/17/19 14:15 96 Room Air I&O- Last 24 Hours up to 6 AM 03/18/19 06:00 Intake Total 2604 ml Output Total 2450 ml Balance 154 ml Laboratory Data Labs 24H Laboratory Tests 2 03/17/19 08:03: Nucleated Red Blood Cells % (auto) 0.0, Random Glucose 125, Magnesium Level 4.4H, Syphilis Serology NONREACTIVE 03/17/19 12:30: Cord Arterial Blood pH 7.127, Cord Arterial Blood PCO2 56.1, Cord Arterial Blood PO2 50.3, Cord Arterial Blood HCO3 18.1, Cord Arterial Blood Total CO2 19.8, Cord Arterial Blood Base Excess -11.3, Cord Arterial Base Excess (Standard 15.4, Cord Arterial Bld Oxygen Saturation 87.5, Cord Venous Blood pH 7.045, Cord Venous Blood PCO2 86.2, Cord Venous Blood PO2 13.8, Cord Venous Blood HCO3 23.0, Cord Venous Blood Total CO2 25.7, Cord Venous Base Excess (Actual) -8.9, Cord Venous Base Excess (Standard) 15.8, Cord Venous Blood Oxygen Saturation 16.5 CBC/BMP Laboratory Tests 03/17/19 08:03 Discharge Medications Scheduled Enoxaparin Sodium (Lovenox) 40 Mg/0.4 Ml Syringe, 40 MG SC QHS Lisinopril (Lisinopril) 10 Mg Tablet, 10 MG PO DAILY Magnesium Oxide (Magnesium Oxide) 400 Mg Tablet, 400 MG PO DAILY for constipation, (Reported) Nifedipine (Nifedipine ER) 30 Mg Tab.er.24, 60 MG PO DAILY Scheduled PRN Oxycodone/Acetaminophen (Oxycodone-Acetaminophen 5-325) 1 Each Tablet, 1 TAB PO Q6HP PRN for MILD/MODERATE PAIN (PS 1-7) Oxycodone/Acetaminophen (Oxycodone-Acetaminophen 5-325) 1 Each Tablet, 2 TAB PO Q6HP PRN for SEVERE PAIN (PS 8-10) Allergies Coded Allergies: No Known Drug Allergies (Verified Allergy, Unknown, 09/11/18) MARIAJOSE LUZ DO Mar 18, 2019 02:37
[2019-03-18] MEDS: LABETALOL 200 MG TAB PO SCH ×3 (05:57→22:17)
[2019-03-18] MEDS ORDERED: ceFAZolin SOD 3 GM in D5W MINI-BAG PLUS 50 ML IV ONE (06:00)
[2019-03-18] MEDS ORDERED: GLUCAGON FOR INJ 1 MG VIAL (J1610) SC PRN (06:45)
[2019-03-18] MEDS ORDERED: GLUCOSE 4 GM CHEW TABLET PO PRN (06:45)
[2019-03-18] MEDS ORDERED: DEXTROSE 50% 50 ML SYRINGE IV PRN (06:45)
[2019-03-18 06:55] LABS: HEMATOCRIT 35.6 % (36.0-47.0); MEAN CORPUSCULAR HEMOGLOBIN 26.4 pg (27.0-33.0); MEAN CORPUSCULAR HGB CONC 31.2 g/dl (32.0-36.5); MEAN CORPUSCULAR VOLUME 84.6 fl (80.0-96.0); PLATELET COUNT, AUTOMATED 326 10^3/uL (150-450); RED BLOOD COUNT 4.21 10^6/uL (4.00-5.40); WHITE BLOOD COUNT 12.4 10^3/uL (4.0-10.0)
[2019-03-18 06:58] LABS: HEMOGLOBIN 11.1 g/dl (12.0-15.5)
--- NOTE | 2019-03-18 07:13 | IPNPDOC ---
Progress Note Date of Service: Mar 18, 2019 Progress Note Ms. Randall is a 34 yo G3 now P4 who is POD#1 s/p uncomplicated RLTCS yesterday around 1200 due to CHTN with superimposed pre E and severe IUGR with reversed diastolic flow on umbilical artery doppler studies. She has been receiving IV magnesium for maternal seizure prophylaxis. Overnight there were no acute events. She reports feeling well this morning. She has minimal pain. She also denies any SOB, headaches, RUQ pain, or visual changes. Baby is in the NICU. Vitals - VSS, BPs normal to mildly elevated, afebrile, non tachycardic General - AAOX3, sitting up in bed, NAD Abdomen - Bandage in place over incision, no fundal tenderness Extremities - 1+ edema in lower extremities. UO - Borderline low, but picking up to 50-100ml/hr over last several hours Labs: Post op CBC stable this AM. Pending CMP. Ms. Zarco is doing well and making an appropriate recovery. Plan to continue IV magnesium until 24 hours post delivery. Continue scheduled PO blood pressure medication. Sliding scale insulin ordered. Continue lovenox for DVT prophylaxis. Continue routine postoperative care. Anticipate discharge home tomorrow or the day after if meeting all criteria. Baby will be in the NICU for a prolonged period. Mariajose Luz, VS, I&O, 24H, Yuan Vital Signs/I&O Vital Signs Date Time Temp Pulse Resp B/P (MAP) Pulse Ox O2 Delivery O2 Flow Rate FiO2 03/18/19 06:47 81 16 135/64 (87) 03/18/19 05:47 97.6 03/17/19 14:15 96 Room Air I&O- Last 24 Hours up to 6 AM 03/18/19 06:00 Intake Total 3194 ml Output Total 2640 ml Balance 554 ml Laboratory Data 24H LABS Laboratory Tests 2 03/17/19 08:03: Nucleated Red Blood Cells % (auto) 0.0, Random Glucose 125, Magnesium Level 4.4H, Syphilis Serology NONREACTIVE 03/17/19 12:30: Cord Arterial Blood pH 7.127, Cord Arterial Blood PCO2 56.1, Cord Arterial Blood PO2 50.3, Cord Arterial Blood HCO3 18.1, Cord Arterial Blood Total CO2 19.8, Cord Arterial Blood Base Excess -11.3, Cord Arterial Base Excess (Standard 15.4, Cord Arterial Bld Oxygen Saturation 87.5, Cord Venous Blood pH 7.045, Cord Venous Blood PCO2 86.2, Cord Venous Blood PO2 13.8, Cord Venous Blood HCO3 23.0, Cord Venous Blood Total CO2 25.7, Cord Venous Base Excess (Actual) -8.9, Cord Venous Base Excess (Standard) 15.8, Cord Venous Blood Oxygen Saturation 16.5 03/18/19 06:37: Nucleated Red Blood Cells % (auto) 0.0 CBC/BMP Laboratory Tests 03/17/19 08:03 03/18/19 06:37 MARIAJOSE LUZ DO Mar 18, 2019 07:13
[2019-03-18 07:26] LABS: ALBUMIN 2.2 GM/DL (3.2-5.2); ALT/SGPT 17 U/L (12-78); BILIRUBIN,TOTAL 0.2 MG/DL (0.2-1.0); BLOOD UREA NITROGEN 17 MG/DL (7-18); CALCIUM LEVEL 8.1 MG/DL (8.5-10.1); CARBON DIOXIDE LEVEL 23 MEQ/L (21-32); CHLORIDE LEVEL 104 MEQ/L (98-107); CREATININE FOR GFR 0.68 MG/DL (0.55-1.30); GLOMERULAR FILTRATION RATE > 60.0 (>60); GLUCOSE, FASTING 116 MG/DL (70-100); POTASSIUM SERUM 4.7 MEQ/L (3.5-5.1); SODIUM LEVEL 136 MEQ/L (136-145); TOTAL PROTEIN 6.5 GM/DL (6.4-8.2)
[2019-03-18] MEDS: HumaLOG INSULIN (NovoLOG) PER UNIT SC SCH ×3 (07:42→17:04)
[2019-03-18] MEDS: PRENATAL VITAMINS CHEWABLE TABLET PO SCH (08:15)
[2019-03-18] MEDS ORDERED: SLF 3 ML SYR IV PRN (12:45)
[2019-03-18] MEDS: IBUPROFEN 800 MG TAB PO SCH ×2 (13:56→22:18)
[2019-03-18] MEDS: SLF 3 ML SYR IV SCH ×2 (13:57→22:00)
[2019-03-18] MEDS: PERCOCET 5MG/325MG TAB PO PRN (15:36)
[2019-03-18] MEDS: ENOXAPARIN 60 MG/0.6 ML SYR (J1650) SC SCH (18:56)
[2019-03-18] MEDS ORDERED: NIFEdipine 30 MG XL TAB PO SCH (21:00)
[2019-03-18] MEDS ORDERED: HumaLOG INSULIN (NovoLOG) PER UNIT SC SCH (21:00)
[2019-03-19] VITALS (10 sets, daily range): BP systolic 141–176; BP diastolic 82–97
[2019-03-19] MEDS: SLF 3 ML SYR IV SCH ×3 (06:00→22:20)
[2019-03-19] MEDS: IBUPROFEN 800 MG TAB PO SCH ×2 (06:16→14:16)
[2019-03-19] MEDS: LABETALOL 200 MG TAB PO SCH (06:18)
[2019-03-19] MEDS: PERCOCET 5MG/325MG TAB PO PRN ×2 (06:25→14:17)
[2019-03-19] MEDS: HumaLOG INSULIN (NovoLOG) PER UNIT SC SCH ×3 (07:17→17:30)
--- NOTE | 2019-03-19 07:26 | IPNPDOC ---
Progress Note Date of Service: Mar 19, 2019 Progress Note Ms. Randall is a 34 yo G3 now P4 who is POD#2 s/p uncomplicated RLTCS on 17Mar2019 around 1200 due to CHTN with superimposed pre E and severe IUGR with reversed diastolic flow on umbilical artery doppler studies. She received IV magnesium for maternal seizure prophylaxis for 24 hours. She has been on sliding scale insulin for diabetes control and labetalol and nifedipine for BP control. Ms. Randall reports feeling well this morning. She denies any headaches, RUQ pain, or visual changes. She endorses fatigue but minimal pain. Vitals - Multiple severely elevated blood pressures. Afebrile, non tachycardic General - AAOX3, sitting up in bed, NAD Abdomen - Fundus firm at U-1. No fundal tenderness. Bandage removed from incision. Incision clean/dry/intact. Minimal tenderness to palpation. Extremities - 1+ edema in lower extremities. UO - Appropriate Labs: Post op CBC and CMP appropriate Ms. Zarco is overall doing well. Largest issue at this time remains blood pressure control. She has had multiple severe range blood pressures. Will increase labetalol to 300mg Q8H and continue nifedipine 30mg XL daily. Continue sliding scale insulin and metformin. Ling term diabetes management will be a concern in the future. Otherwise continue ambulation and routine post op care. will be in NICU care home. Discharge of Ms. Randall to home or boarder will depend on BP control. Mariajose Luz, VS, I&O, 24H, Yuan Vital Signs/I&O Vital Signs Date Time Temp Pulse Resp B/P (MAP) Pulse Ox O2 Delivery O2 Flow Rate FiO2 03/19/19 06:50 171/88 (115) 03/19/19 06:25 18 Room Air 03/19/19 06:00 98.1 96 97 I&O- Last 24 Hours up to 6 AM 03/19/19 06:00 Intake Total 2130 ml Output Total 870 ml Balance 1260 ml Laboratory Data 24H LABS Laboratory Tests 2 03/18/19 07:32: Bedside Glucose (Misc Panel) 116H 03/18/19 12:24: Bedside Glucose (Misc Panel) 113H 03/18/19 16:59: Bedside Glucose (Misc Panel) 113H 03/18/19 21:27: Bedside Glucose (Misc Panel) 120H 03/19/19 06:30: Bedside Glucose (Misc Panel) 90 MARIAJOSE LUZ DO Mar 19, 2019 07:26
[2019-03-19] MEDS: PRENATAL VITAMINS CHEWABLE TABLET PO SCH (09:38)
[2019-03-19] MEDS: LABETALOL 100 MG TAB PO SCH ×3 (09:40→21:35)
[2019-03-19] MEDS ORDERED: NIFEdipine 10 MG CAP PO ONE ×2 (16:00→16:30)
[2019-03-19] MEDS ORDERED: NIFEdipine 10 MG CAP As Ordered ONE (16:23)
[2019-03-19] MEDS ORDERED: MAXZIDE 75/50 TABLET PO ONE (17:45)
--- NOTE | 2019-03-19 18:40 | IPNPDOC ---
Text Note Date of Service The patient was seen on 03/19/19. NOTE come to assess patient for elevated BP. Patient without complaints. Denies TILLEY/N/V/Change in vision. Patient used be on maxzide and lisinopril outside of for CHTN. She was diagnosed with DM in her first trimester. Currently on nifedipine xl 30mg qhs, Labetalol 300mg TID. her BP has not been well controlled through out the day. I was notified of her elevated BP in 170's at 1600 today. patient was given procardia 10mg x 1. one hr later her bp is was 160/90. Reviewed her blood glucose level has been in the 90's and she has not needed insulin until dinner time. Discussed with patient my concern for her BP not well controlled. Will add maxzide 25/37.5 mg tonight and continue with medication tomorrow am daily. increase nifedipine xl 30mg BID. will consider tapering off labetalol if BP has significant improvement. will repeat BP in 2hrs. continue with q4hrs BP check afterwards. for DM, will stop sliding scale and monitor blood sugar and add oral medication as needed. VS,Fishbone, I+O VS, Fishbone, I+O Vital Signs Date Time Temp Pulse Resp B/P (MAP) Pulse Ox O2 Delivery O2 Flow Rate FiO2 03/19/19 18:00 98.9 87 18 160/84 (109) 98 03/19/19 14:55 Room Air I&O- Last 24 Hours up to 6 AM 03/19/19 06:00 Intake Total 2130 ml Output Total 870 ml Balance 1260 ml AMIRAH GOMEZ DO Mar 19, 2019 18:40
[2019-03-19] MEDS ORDERED: NIFEdipine 30 MG XL TAB PO SCH (20:00)
[2019-03-19] MEDS: ENOXAPARIN 40 MG/0.4 ML SYRINGE (J1650) SC SCH (21:36)
[2019-03-20 02:00] VITALS: BP 160/84
[2019-03-20 06:00] VITALS: BP 162/87
[2019-03-20] MEDS: SLF 3 ML SYR IV SCH ×3 (06:18→22:00)
--- NOTE | 2019-03-20 07:10 | IPNPDOC ---
Progress Note Date of Service: Mar 20, 2019 Day#: 3 Progress Note SUBJECT: Patient is a 34yo s/p RLTCD @ 33wks gestation or CHTN with super imposed pre-e POD #3. She has been ambulating, voiding spontaneously without issue and tolerating regular diet. She is breast pumping. Denies TILLEY/N/V/change in vision. baby in NICU. HTN MEDICATIONS: nifedipine XL 30mg daily maxzide 25/37.5mg daily labetalol 300mg TID OBJECTIVE: VITAL SIGNS: 160's-170's/80's-90's, HR: 80-100, afebrile Alert and oriented times three. Breath sounds clear to auscultation. Heart rate: Regular rate and rhythm, no murmurs, rubs or gallops. Abdomen: obese, incision c/d/i, steri strips on. LE: +1 pitting edema fasting glucose: 99 a/p patient POD #3 with CHTN on combination med, not well controlled at this time. goal is to be <160/110 prior to discharge. Will give Nifedipine xl 60mg this am. continue with 4hrs BP check. fasting glucose 99 this am. Will continue to monitor blood glucose qid. Add oral medication as needed. VS, I&O, 24H, Fishbone Vital Signs/I&O Vital Signs Date Time Temp Pulse Resp B/P (MAP) Pulse Ox O2 Delivery O2 Flow Rate FiO2 03/20/19 06:00 99.0 89 17 162/87 (112) 97 Room Air Laboratory Data 24H LABS Laboratory Tests 2 03/19/19 12:28: Bedside Glucose (Misc Panel) 95 03/19/19 17:52: Bedside Glucose (Misc Panel) 102 03/20/19 06:13: Bedside Glucose (Misc Panel) 99 AMIRAH GOMEZ DO Mar 20, 2019 07:10
[2019-03-20] MEDS: NIFEdipine 30 MG XL TAB PO SCH ×2 (07:36→09:00)
[2019-03-20 07:51] LABS: HEMATOCRIT 36.2 % (36.0-47.0); HEMOGLOBIN 11.2 g/dl (12.0-15.5); MEAN CORPUSCULAR HEMOGLOBIN 26.4 pg (27.0-33.0); MEAN CORPUSCULAR HGB CONC 30.9 g/dl (32.0-36.5); MEAN CORPUSCULAR VOLUME 85.4 fl (80.0-96.0); PLATELET COUNT, AUTOMATED 262 10^3/uL (150-450); RED BLOOD COUNT 4.24 10^6/uL (4.00-5.40); WHITE BLOOD COUNT 9.7 10^3/uL (4.0-10.0)
[2019-03-20 08:13] LABS: ALBUMIN 2.5 GM/DL (3.2-5.2); ALT/SGPT 25 U/L (12-78); BILIRUBIN,TOTAL 0.2 MG/DL (0.2-1.0); BLOOD UREA NITROGEN 10 MG/DL (7-18); CARBON DIOXIDE LEVEL 29 MEQ/L (21-32); CHLORIDE LEVEL 105 MEQ/L (98-107); CREATININE FOR GFR 0.53 MG/DL (0.55-1.30); GLOMERULAR FILTRATION RATE > 60.0 (>60); GLUCOSE, FASTING 98 MG/DL (70-100); POTASSIUM SERUM 3.8 MEQ/L (3.5-5.1); SODIUM LEVEL 140 MEQ/L (136-145); TOTAL PROTEIN 6.9 GM/DL (6.4-8.2)
[2019-03-20] MEDS ORDERED: ENOXAPARIN 40 MG/0.4 ML SYRINGE (J1650) SC SCH (09:00)
[2019-03-20] MEDS: LABETALOL 100 MG TAB PO SCH ×3 (09:24→21:01)
[2019-03-20] MEDS: PRENATAL VITAMINS CHEWABLE TABLET PO SCH (09:24)
[2019-03-20 09:50] VITALS: BP 164/100
[2019-03-20] MEDS: PERCOCET 5MG/325MG TAB PO PRN ×2 (11:08→21:01)
[2019-03-20] MEDS: MAXZIDE 75/50 TABLET PO SCH (11:10)
[2019-03-20 14:27] VITALS: BP 150/72
[2019-03-20] MEDS: LISINOPRIL 10 MG TAB PO SCH (16:47)
[2019-03-20 17:55] VITALS: BP 148/90
[2019-03-20] MEDS: ENOXAPARIN 40 MG/0.4 ML SYRINGE (J1650) SC SCH (21:01)
[2019-03-20] MEDS: SIMETHICONE 80 MG CHEW TAB PO PRN (21:01)
[2019-03-20 21:08] VITALS: BP 146/82
[2019-03-21 02:00] VITALS: BP 141/74
[2019-03-21] MEDS: SIMETHICONE 80 MG CHEW TAB PO PRN ×2 (05:01→13:38)
[2019-03-21 06:00] VITALS: BP 135/72
[2019-03-21 07:32] LABS: HEMOGLOBIN 11.9 g/dl (12.0-15.5); MEAN CORPUSCULAR HEMOGLOBIN 26.4 pg (27.0-33.0); MEAN CORPUSCULAR HGB CONC 31.3 g/dl (32.0-36.5); MEAN CORPUSCULAR VOLUME 84.3 fl (80.0-96.0); PLATELET COUNT, AUTOMATED 258 10^3/uL (150-450); RED BLOOD COUNT 4.51 10^6/uL (4.00-5.40); WHITE BLOOD COUNT 10.5 10^3/uL (4.0-10.0)
[2019-03-21] MEDS: PRENATAL VITAMINS CHEWABLE TABLET PO SCH (08:50)
[2019-03-21] MEDS: PERCOCET 5MG/325MG TAB PO PRN ×2 (08:50→23:26)
[2019-03-21] MEDS: NIFEdipine 30 MG XL TAB PO SCH (08:53)
[2019-03-21] MEDS: LISINOPRIL 10 MG TAB PO SCH (08:54)
[2019-03-21] MEDS: MAXZIDE 75/50 TABLET PO SCH (08:54)
[2019-03-21 10:27] VITALS: BP 164/78
[2019-03-21 14:57] VITALS: BP 138/56
[2019-03-21 18:16] VITALS: BP 158/84
--- NOTE | 2019-03-21 19:57 | IPN ---
DATE: 03/21/2019 This a 33-year-old 3, now para 3, who was admitted because of severe range blood pressures, uncontrolled GDM, uncontrolled blood pressures, IUGR, morbid obesity, and noncompliant patient. She had a repeat section because of these issues of a live male infant weighing 3.3 pounds, 1510 grams, scores of seven and eight at 1 and 5 minutes respectively. Arterial pH was 7.12, base excess -11.3, venous pH 7.04, base excess -8.9. Over the next couple of days her blood pressures were in the severe range blood pressure and after juggling her medications including using her labetalol, we then added nifedipine and magnesium oxide and Procardia. She eventually started to stabilize out on the combination of magnesium oxide, nifedipine, and lisinopril, and her blood pressures remained fairly in the mid range blood pressure. She occasionally peaks with an elevated blood pressure of 160/90, 164/92, 164/78 and her assumption is that her control predelivery and prepregnancy was in the 160/90 range. She is diuresing well. Her blood sugars have come down to normalized. She is no longer on a sliding scale. Our plan of management today is to take away the labetalol, continue with the three main medications that she is presently on, which is the nifedipine at 60 mg daily, the lisinopril at 10 mg daily, and magnesium oxide, and if this works well over the next 24-48 hours the patient will be discharged home on these medications to followup in 1 week for a blood pressure check. The patient expresses understanding of the necessity for taking her blood pressure medications on time and in the appropriate dosages.
[2019-03-21] MEDS: ENOXAPARIN 40 MG/0.4 ML SYRINGE (J1650) SC SCH (21:32)
[2019-03-21 22:00] VITALS: BP 138/89
[2019-03-22 02:00] VITALS: BP 141/89
[2019-03-22 06:00] VITALS: BP 164/83
[2019-03-22] MEDS ORDERED: NIFE30TA7 PO (06:47)
[2019-03-22] MEDS ORDERED: LISI10TA4 PO (06:47)
[2019-03-22] MEDS ORDERED: LOVE1INJ SC (06:47)
[2019-03-22] MEDS ORDERED: PERCOCET PO (06:47)
[2019-03-22] MEDS: NIFEdipine 30 MG XL TAB PO SCH (08:59)
[2019-03-22] MEDS: PRENATAL VITAMINS CHEWABLE TABLET PO SCH (08:59)
[2019-03-22 09:00] VITALS: BP 155/81
[2019-03-22] MEDS: MAXZIDE 75/50 TABLET PO SCH (09:00)
[2019-03-22] MEDS: LISINOPRIL 10 MG TAB PO SCH (09:00)
[2019-03-22] MEDS ORDERED: hydrALAZINE INJ 20 MG/ML VIAL IV STA (11:13)
--- NOTE | 2019-03-22 15:19 | DSES ---
DATE OF ADMISSION: 03/16/2019 DATE OF DISCHARGE: 03/22/2019 33-year-old, 3, para 2, was admitted because of severe range blood pressures, uncontrolled diabetes, AGDM2, chronic hypertension, morbidly obese. She had a significant IUGR infant with an ST ratio which reversed. She was given steroids in order to enhance lung maturity. She was also placed on insulin in order to try and bring her sugars down and she was on three medications regarding her blood pressure following the hypertensive protocol to bring those down. Once all that was achieved, she had a repeat section of a live male infant weighing 3 pounds 3 ounces (1510 grams). score 7 and 8 at one and five minutes, respectively. , she required intensive antihypertensive medication. She was placed on Lovenox for phlebitis risk and she was on a sliding scale. Having been monitoring her blood sugars presently they seem to be within normal range as her diet is controlled by what is given to her here and her insulin was stopped because her blood sugars seemed to be within normal limits. Her medication for blood pressure were continued in the form of lisinopril 10 mg daily, nifedipine 60 mg daily, and magnesium oxide 400 mg daily. Her blood pressures are labile anywhere from 138/89 to 141/89 to 158/84. She is still in the mid range blood pressures, occasionally has a high range blood pressure but we feel that this patient probably continued at a high range blood pressure when she was not . We had a discussion this morning regarding the use of her antihypertensives and also use of her Lovenox. However, it is our impression that when she gets home she is not going to be compliant with any of these medications. The patient was discharged to have a followup in 1 week for blood pressure check, 2 weeks for incision check and 6 weeks for check. The baby is still in the intensive care unit (NICU); will be here till [place]. The baby is getting better being that it was an IUGR, less than the third percentile, does have hypospadias, is on room air, but is having weight gain issues. The patient was discharged in improved condition.
== END 2019-03-22 11:05 | disposition home or self-care (01) | DRG 772 ==
LOC: M LDO 16:57 → M LDI 20:40 → M OBS 03-18 18:27
PROVIDERS: ADMIT Obstetrics & Gynecology; ATTEND Obstetrics & Gynecology
PROC: 10D00Z1 Extraction of Products of Conception, Low, Open Approach (ICD-10-PCS; principal; 2019-03-17 12:51)
DX: O11.4 Pre-existing hypertension with pre-eclampsia, complicating childbirth (principal); Z68.42 Body mass index [BMI] 45.0-49.9, adult; Z3A.32 32 weeks gestation of pregnancy; Z37.0 Single live birth; O99.214 Obesity complicating childbirth; E66.01 Morbid (severe) obesity due to excess calories; O24.424 Gestational diabetes mellitus in childbirth, insulin controlled; Z91.14 Patient's other noncompliance with medication regimen; Z91.19 Patient's noncompliance with other medical treatment and regimen; O36.5930 Maternal care for other known or suspected poor fetal growth, third trimester, not applicable or unspecified; O35.8XX0 Maternal care for other (suspected) fetal abnormality and damage, not applicable or unspecified; O34.211 Maternal care for low transverse scar from previous cesarean delivery; O77.0 Labor and delivery complicated by meconium in amniotic fluid; O10.02 Pre-existing essential hypertension complicating childbirth

== ENCOUNTER → 2019-09-03 | Outpatient (REF) | payer OTHER ==
[~2019-09-03] MED LIST changes: +APAP325T4 PO; +ASPI81TA85 PO; +HUMA100I5 SC; +LISI10TA4 PO; +LOVE1INJ SC; +METF500T13 PO; +NIFE1TAB52 PO; +PERCOCET PO
== END ==
LOC: M LAB REF 14:56
PROVIDERS: ATTEND Internal Medicine Endocrinology, Diabetes & Metabolism
DX: E04.2 Nontoxic multinodular goiter (principal)